=== PATIENT | female | born 1990 | race African-American/Black ===

== ENCOUNTER 2019-02-11 03:45 | Emergency (ER) | payer MEDICAID ==
[~2019-02-11] VITALS: Ht 167.6 cm; Wt 92.4 kg
[2019-02-11] MEDS ORDERED: ONDANSETRON HCL 4MG/2ML INJ IV STA (06:18)
[2019-02-11] MEDS ORDERED: MAGNESIUM/ALUMINUM HYDROXIDE/SIMETHICONE 30ML UDC PO STA (06:18)
[2019-02-11] MEDS ORDERED: KETOROLAC 30MG/ML VIAL IV STA (06:18)
[2019-02-11] MEDS ORDERED: SODIUM CHLORIDE 0.9% 1,000 ML IV ONE (06:18)
[2019-02-11 06:27] LABS: BASOPHILS % 1.3 % (0.0-2.0); EOSINOPHILS % 1.9 % (0.0-5.0); HEMATOCRIT. 33.9 % (36.0-48.0); HEMOGLOBIN. 11.6 g/dL (12.0-16.0); LYMPHOCYTES % 37.9 % (20.0-50.0); MEAN CORPUSCULAR HEMOGLOBIN 33.8 pg (28.0-32.0); MEAN CORPUSCULAR VOLUME 98.5 fL (81.0-99.0); MEAN PLATELET VOLUME 8.8 fl (7.4-10.4); MONOCYTES % 9.2 % (2.0-8.0); NEUTROPHILS % 49.7 % (40.0-76.0); PLATELET 217 x1000/uL (130-400); RED BLOOD CELL COUNT 3.44 mill/uL (4.2-5.4); RED CELL DISTRIBUTION WIDTH 12.4 % (11.6-14.6)
[2019-02-11 06:28] LABS: CHLORIDE 111 mEq/L (98-107)
[2019-02-11 06:30] LABS: CLARITY URINE CLEAR (CLEAR); COLOR URINE YELLOW (YELLOW); KETONES URINE NEGATIVE (NEGATIVE); LEUKOCYTE ESTERASE URINE NEGATIVE (NEGATIVE); NITRITE URINE NEGATIVE (NEGATIVE); OCCULT BLOOD URINE 2+ (NEGATIVE); PH URINE 6.5 (4.5-8.0); PROTEIN URINE NEGATIVE (NEGATIVE); SPECIFIC GRAVITY URINE 1.026 (1.005-1.030)
[2019-02-11 06:35] LABS: PROTHROMBIN TIME 10.2 sec (9.6-11.0)
[2019-02-11 08:28] VITALS: BP 110/64
== END 2019-02-11 08:29 | disposition home or self-care (01) ==
LOC: ER 03:45
DX: R10.9 Unspecified abdominal pain (principal); Z90.89 Acquired absence of other organs
CPT/HCPCS: 36415; 74176; 80053; 81003; 81025; 83690; 85025; 85610; 96374; 96375; 99284; J1885; J2405; J7030

== ENCOUNTER 2019-09-02 15:16 | Emergency (ER) | payer MEDICAID ==
[~2019-09-02] VITALS: Ht 167.6 cm; Wt 92.0 kg
[2019-09-02] MEDS ORDERED: METRONIDAZOLE 500MG TABLET PO ONE (17:15)
[2019-09-02] MEDS ORDERED: AZITHROMYCIN 500 MG TABLET PO SCH (17:15)
[2019-09-02] MEDS ORDERED: CEFTRIAXONE SODIUM 250 MG/VIAL IM ONE (17:15)
[2019-09-02 18:16] VITALS: BP 110/64
[2019-09-06 04:09] LABS: NEISSERIA GONORRHOEAE NAA Negative (Negative)
== END 2019-09-02 18:22 | disposition home or self-care (01) ==
LOC: ER 15:16
DX: N72 Inflammatory disease of cervix uteri (principal); Z11.3 Encounter for screening for infections with a predominantly sexual mode of transmission; N89.8 Other specified noninflammatory disorders of vagina; N92.6 Irregular menstruation, unspecified
CPT/HCPCS: 81025; 87491; 87591; 96372; 99283; J0696

== ENCOUNTER 2020-09-24 19:39 | Emergency (ER) | payer MEDICAID ==
[~2020-09-24] VITALS: Ht 167.6 cm; Wt 88.0 kg
[2020-09-24 20:06] VITALS: BP 101/53
[2020-09-24] MEDS ORDERED: KETOROLAC 30MG/ML VIAL IM ONE (22:15)
[2020-09-24] MEDS ORDERED: BACITRACIN ZINC OINT UDPKT TOP ONE (22:15)
[2020-09-24] MEDS ORDERED: IBUP-2029 MT (23:04)
== END 2020-09-24 23:31 | disposition home or self-care (01) ==
LOC: ER 19:39
DX: M25.562 Pain in left knee (principal); M79.622 Pain in left upper arm; W01.0XXA Fall on same level from slipping, tripping and stumbling without subsequent striking against object, initial encounter; Y93.89 Activity, other specified; Y92.22 Religious institution as the place of occurrence of the external cause
CPT/HCPCS: 73060; 73562; 81025; 96372; 99284; J1885